=== PATIENT | male | born 1960 | race African-American/Black ===

== ENCOUNTER 2024-12-09 10:57 | Outpatient (CLI) | payer OTHER, SELFPAY ==
--- OUTSIDE RECORDS SUMMARY | 2024-12-09 12:35 | XMS_ITS | Clinical Summary ---
Author Organization [facility] Address [address] [place] [address] Care Team Providers Care Brush Maker Machine Name Role Phone Shyam Castro MD Primary Care Provider [phone] Allergies No known active allergies Medications albuterol HFA (PROVENTIL HFA,VENTOLIN HFA,PROAIR HFA) 90 mcg/actuation inhaler INHALE 4 PUFFS EVERY 4 HOURS BY INHALATION ROUTE FOR 90 DAYS. 2 Active Symbicort 160-4.5 mcg/actuation inhaler INHALE 2 PUFFS TWICE A DAY BY INHALATION ROUTE FOR 90 DAYS. 2 Active HYDROcodone-acetam inophen (NORCO) 7.5-325 mg per tablet TAKE 1 TABLET BY MOUTH THREE TIMES A DAY FOR 7 DAYS 2 Active Viagra 100 mg tablet TAKE 1 TABLET BY MOUTH 30-60 MINUTES PRIOR TO SEXUAL ACTIVITY. DO NOT TAKE MORE THAN 1 TABLET IN ANY 24-HOUR PERIOD. 2 Active rivaroxaban (XARELTO) 20 mg tablet Take 1 tablet (20 mg total) by mouth daily 90 tablet 2 Active benzonatate (TESSALON) 200 mg capsule Take 200 mg by mouth 3 (three) times a day 2 Active loratadine (CLARITIN) 10 mg tablet Take 10 mg by mouth daily 2 Active Tiadylt ER 240 mg 24 hr capsule Take by mouth daily 2 Active ramipriL (ALTACE) 1.25 mg capsuleIndications :Essential hypertension,Nonis chemic cardiomyopathy (HCC) Take 1 capsule (1.25 mg total) by mouth daily 30 capsule 11 3 Active metoprolol tartrate (LOPRESSOR) 25 mg immediate release tablet TAKE 1 TABLET BY MOUTH TWICE A DAY 180 tablet 3 3 Active Xarelto 20 mg tablet TAKE 1 TABLET BY MOUTH EVERY DAY 90 tablet 1 3 Active Active Problems Problem Noted Date Diagnosed Date Atrial fibrillation 02/09/2022 Overview (02/09/2022): Added automatically from request for surgery [id number] Bradycardia 02/09/2022 Overview (02/09/2022): Added automatically from request for surgery [id number] Chest pain 02/09/2022 Overview (02/09/2022): Added automatically from request for surgery [id number] Paroxysmal atrial fibrillation 02/09/2022 Overview (02/09/2022): Added automatically from request for surgery [id number] Cardiovascular stress test abnormal 02/09/2022 Overview (02/09/2022): Added automatically from request for surgery [id number] Peripheral vascular disease 02/09/2022 Overview (02/09/2022): Added automatically from request for surgery [id number] Essential hypertension 02/09/2022 Overview (02/09/2022): Added automatically from request for surgery [id number] Dyspnea on exertion 02/09/2022 Overview (02/09/2022): Added automatically from request for surgery [id number] Palpitations 02/09/2022 Overview (02/09/2022): Added automatically from request for surgery [id number] Surgical History Surgery Date Site/Laterality Comments NO PAST SURGERIES Medical History Medical History Date Comments Gout Shortness of breath Family History Medical History Relation Name Comments Arthritis Father Arthritis Mother Diabetes Mother Heart disease Mother Relation Name Status Comments Father Mother Social History Tobacco Use Types Packs/Day Years Used Date Smoking Tobacco: Every Day Cigarettes 0.5 20 Smokeless Tobacco: Never Tobacco Cessation:Ready to Q uit: Not Asked; Counseling Given: Not Answered Alcohol Use Standard Drinks/Week Comments Yes 0 (1 standard drink = 0.6 oz pur e alcohol) social Personal Safety Answer Date Recorded Getting School Help Needed Not on file 09/20 Sex and Gender Information Value Date Recorded Sex Assigned at Not on file Legal Sex Male 8:40 PM OFFICE MOVER Gender Identity Not on file Sexual Orientation Not on file Obstetrics History Last Filed Vital Signs Vital Sign Reading Time Taken Comments Blood Pressure 140/86 09/17/2022 11:29 AM OFFICE MOVER Pulse 66 09/17/2022 11:29 AM OFFICE MOVER Temperature 36.4 C (97.5 F) 02/08/2022 11:00 AM CDT Respiratory Rate 16 02/12/2022 2:35 PM CDT Oxygen Saturation 99% 09/17/2022 11:29 AM OFFICE MOVER Inhaled Oxygen Concentration - - Weight 98.9 kg (218 lb) 09/17/2022 11:29 AM OFFICE MOVER Height 180.3 cm (5' 11 ) 02/08/2022 11:00 AM CDT Body Mass Index 30.4 02/08/2022 11:00 AM CDT Plan of Treatment Health Maintenance Due Date Last Done Comments Colon Cancer Screening-Colonoscopy 1960 Depression Screening 1960 Hepatitis C Screening 1960 Prostate Cancer Screening-PSA 1960 DTaP/Tdap/Td Vaccine (1 - Tdap) 1971 Hepatitis B Screening 1978 Regular Well Visit/Exam 18-64 1978 Pneumococcal vaccine <65 (1 of 2 - PCV) 1979 Zoster Vaccine (1 of 2) 2010 Covid-19 Vaccine ( - season) 05/10/202410/2020, 02/09/2021 Influenza Vaccine (Season Ended) 2025 Insurance [facility] ACCESS CHOICE Member Subscriber Plan / Payer (Ef fective 2017-Present) Name:Alonso Chris Relation to Subscriber:Self Name:Alonso Chris Payer ID:[id number] (NAIC) Type:[facility] Address: [address] [place] [id number] Care Teams Brush Maker Machine Relationship Specialty Start Date End Date Shyam Castro MD [address] [place] [id number] PCP - General Family Medicine 11/15/21
--- OUTSIDE RECORDS SUMMARY | 2024-12-09 12:35 | XMS_ITS | Clinical Summary ---
Author Organization [facility] Address [address] [place] [address] Care Team Providers Care Branch Billing Payroll Clerk Name Role Phone Shyam Castro Primary Care Provider [phone] Source Comments [facility],non-owned Affiliates and Associated Physician Practices is amultiple site organization consisting of ambulatory clinics and hospital sitesin [place], [place], [place] and [place]. This disclosure is being madepursuant to the Care Everywhere program and may not contain all information available regarding this patient. Last updated 18.[facility] Allergies No known active allergies Medications * Be aware that medications may not be up to date on this document. Alwaysverify current medications with the patient. Medication Sig Dispensed Refills Start Date End Date Status ramipril (Altace) 1.25 MG capsule Take 1 (one) capsule by mouth once daily 30 capsule 11 09/17/2022 Active Tiadylt ER 240 MG capsule Take 1 (one) capsule by mouth once daily 07/17/2023 Active aspirin (Aspirin) 81 MG chew tablet Take 1 (one) tablet by mouth once daily Active folic acid (Folvite) 1 MG tabletIndications:Par oxysmal atrial fibrillation (HCC),Valvular heart disease,Dyslipidemia, Essential hypertension,PAF (paroxysmal atrial fibrillation) (HCC),Alcoholic myopathy Take 1 (one) tablet by mouth once daily 90 tablet 4 08/20/2023 Active Thiamine HCl 250 MGIndications:Paroxys mal atrial fibrillation (HCC),Valvular heart disease,Dyslipidemia, Essential hypertension,PAF (paroxysmal atrial fibrillation) (HCC),Alcoholic myopathy Take 2 (two) tablets by mouth once daily 90 tablet 1 08/20/2023 Active Xarelto 20 MG tablet TAKE 1 TABLET BY MOUTH EVERY DAY 90 tablet 1 05/13/2024 Active metoprolol tartrate IR (Lopressor) 25 MG tablet Take 1 (one) tablet by mouth 2 times daily Please contact office at [phone] to schedule appt 60 tablet 11 09/24/2024 Active Active Problems Problem Noted Date Diagnosed Date PAF (paroxysmal atrial fibrillation) 09/24/2024 Assessment & Plan (09/24/2024 10:07 AM SALON MANAGER): Atrial fibrillation is permanent. Continue rate control and Xarelto. Essential hypertension 09/24/2024 Assessment & Plan (09/24/2024 10:07 AM SALON MANAGER): Controlled with current medications. No changes recommended. Neoplasm of uncertain behavior of skin 9 Encounters Date Type Department Care Team Description 09/24/2024 9:15 AM SALON MANAGER Office Visit [facility] [address] [place] [address] Skip Ponce MD PAF (paroxysmal atrial fibrillation) (Primary Dx); Essential hypertension 09/24/2024 Travel from Last 3 Months Social History Tobacco Use Types Packs/Day Years Used Date Smoking Tobacco: Every Day Cigarettes Smokeless Tobacco: Never Tobacco Cessation:Ready to Q uit: Not Asked; Counseling Given: Not Answered Alcohol Use Standard Drinks/Week Comments Not Currently 0 (1 standard drink = 0.6 oz pur e alcohol) PHQ-2 Answer Date Recorded Patient Health Questionnaire-2 Score 0 08/20/2023 Sex and Gender Information Value Date Recorded Sex Assigned at Not on file Gender Identity Not on file Sexual Orientation Not on file Last Filed Vital Signs Vital Sign Reading Time Taken Comments Blood Pressure 130/64 09/24/2024 9:32 AM SALON MANAGER Pulse 88 09/24/2024 9:32 AM SALON MANAGER Temperature - - Respiratory Rate 12 08/20/2023 9:45 AM SALON MANAGER Oxygen Saturation 99% 09/24/2024 9:32 AM SALON MANAGER Inhaled Oxygen Concentration - - Weight 91.1 kg (200 lb 12.8 oz) 09/24/2024 9:32 AM SALON MANAGER Height 182.9 cm (6') 09/24/2024 9:32 AM SALON MANAGER Body Mass Index 27.23 09/24/2024 9:32 AM SALON MANAGER Plan of Treatment Upcoming Encounters Date Type Department Care Team (Late st Contact Info) Description 09/22/2025 9:30 AM SALON MANAGER Office Visit [facility] [address] [place] [address] Skip Ponce MD [address] [place] [phone] Health Maintenance Due Date Last Done Comments COLOGUARD (AGES 45-75) - COL ON CA SCREENING 1960 COLON MONITORING 1960 COLONOSCOPY - COLON CA SCREENING 1960 CT COLONOGRAPHY - COLON CA SCREENING 1960 Colorectal Cancer Screening 1960 FIT - COLON CA SCREENING 1960 FLEX SIG - COLON CA SCREENING 1960 LIPID TESTING 1960 HIV SCREENING 1975 HEPATITIS C SCREENING 07/30/1978 DTAP/TDAP/TD VACCINES (1 - Tdap) 1979 PNEUMOCOCCAL VACCINE 50+ (1 of 2 - PCV) 1979 PNEUMOCOCCAL VACCINE (1 of 2 - PCV) 1979 ZOSTER VACCINE (1 of 2) 2010 COVID-19 VACCINE ( - 2023-2 5 season) 2024 INFLUENZA VACCINE (#1) 2024 DEPRESSION SCREENING 09/09/2024 08/20/2023 SCREENING FOR DIABETES 09/24/2024 Respiratory Syncytial Virus (RSV) Vaccine Pt: or over 60 yrs (1 - 1-dose 75+ series) 2035 HEPATITIS B VACCINE Aged Out No longe r eligible based on patient's age to complete this topic HIB VACCINE Aged Out No longer eligi ble based on patient's age to complete this topic HPV VACCINE Aged Out No longer eligi ble based on patient's age to complete this topic MENINGOCOCCAL (Group B) VACC INE SHARED DECISION-MAKING Aged Out No longer eligibl e based on patient's age to complete this topic MENINGOCOCCAL GROUPS A/C/Y/W VACCINE Aged Out No longer eligible b ased on patient's age to complete this topic Procedures Procedure Name Priority Date/Time Associated Diagnosis Comments EKG 12-LEAD Routine 09/24/2024 9:32 AM SALON MANAGER PAF (paroxysmal atrial fibrillation) from Last 3 Months Results * EKG 12-LEAD (09/24/2024 9:32 AM SALON MANAGER) Ventricular Rate 68 BPM [facility] MUSE QRS Duration ms 102 ms [facility] MUSE Q-T Interval ms 380 ms [facility] GR[facility] MUSE QTC Calculation (Bezet) 404 ms [facility] GR[facility] MUSE Calculated R [place] 43 degrees [facility] MUSE Calculated T [place] 65 degrees [facility] MUSE Interpretation EKG Atrial fibrillation Septal infarct (cited on or before 20-AUG-2023) Abnormal ECG When compared with ECG of 20-AUG-2023 09:53, No significant change was found Confirmed by SKIP PONCE MD ([id number]) on 09/25/2024 9:13:23 AM [facility] MUSE 09/24/2024 9:32 AM SALON MANAGER 09/25/2024 9:13 AM SALON MANAGER Skip Ponce MD ECG ORDERABLES [facility] MUSE from Last 3 Months Care Teams Branch Billing Payroll Clerk Relationship Specialty Start Date End Date Shyam Castro [address] [place] [phone] PCP - General 06/09/19
--- OUTSIDE RECORDS SUMMARY | 2024-12-09 12:35 | XMS_ITS | Referral Summary ---
Author Organization [facility] Address [address] [place] [address] Care Team Providers Care Shingler Name Role Phone Shyam Castro MD Primary Care Provider [phone] Allergies No known active allergies Medications albuterol [...] (02/09/2022): Added automatically from request for surgery [id number] Bradycardia 02/09/2022 Overview (02/09/2022): Added automatically from request for surgery [id number] Chest pain 02/09/2022 Overview (02/09/2022): Added automatically from request for surgery [id number] Paroxysmal atrial fibrillation 02/09/2022 Overview (02/09/2022): Added automatically from request for surgery [id number] Cardiovascular stress test abnormal 02/09/2022 Overview (02/09/2022): Added automatically from request for surgery [id number] Peripheral vascular disease 02/09/2022 Overview (02/09/2022): Added automatically from request for surgery [id number] Essential hypertension 02/09/2022 Overview (02/09/2022): Added automatically from request for surgery [id number] Dyspnea on exertion 02/09/2022 Overview (02/09/2022): Added automatically from request for surgery [id number] Palpitations 02/09/2022 Overview (02/09/2022): Added automatically from request for surgery [id number] Social History Tobacco Use Types Packs/Day Years [...] on file Legal Sex Male 8:40 PM CATASTROPHE CLAIMS SUPERVISOR Gender Identity Not on file Sexual Orientation Not on file Last Filed Vital Signs Vital Sign Reading Time Taken Comments Blood Pressure 140/86 09/17/2022 11:29 AM CATASTROPHE CLAIMS SUPERVISOR Pulse 66 09/17/2022 11:29 AM CATASTROPHE CLAIMS SUPERVISOR Temperature 36.4 C (97.5 F) 02/08/2022 11:00 AM CDT Respiratory Rate 16 02/12/2022 2:35 PM CDT Oxygen Saturation 99% 09/17/2022 11:29 AM CATASTROPHE CLAIMS SUPERVISOR Inhaled Oxygen Concentration - - Weight 98.9 kg (218 lb) 09/17/2022 11:29 AM CATASTROPHE CLAIMS SUPERVISOR Height 180.3 cm (5' 11 ) 02/08/2022 11:00 AM CDT Body Mass Index 30.4 02/08/2022 11:00 AM CDT Plan of Treatment Not on file Insurance [facility] ACCESS CHOICE Care Teams Shingler Relationship Specialty Start Date End Date Shyam Castro MD [address] [place] [id number] PCP - General Family Medicine 11/15/21
--- OUTSIDE RECORDS SUMMARY | 2024-12-09 12:36 | XMS_ITS | Data Portability ---
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 Plan of Treatment Reminders Order Date Submit Date Provider Last Modified By Organization Details Last Modified Time Details Appointments ANY 15 2024 09:15A Susu Castro MD Not available Not available Not available Lab None recorded. Referral audiologi st referral 2024 025 [facility] (Audiology), [address] [place] [address], [phone], 11/23/2024 11:40:31 Procedures None recorded. Surgeries None recorded. Imaging XR, knee, 3 view 2024 025 [facility] ([facility]), [address] [place], [address], 11/25/2024 09:17:10 Medication Orders trazodone 50 mg tablet 2024 025 [facility] [id number], [address], 11/23/2024 11:12:30 hydrocodo ne 5 mg-acetam inophen 325 mg tablet 2024 025 [facility] [id number], [address], 11/23/2024 11:14:32 meloxicam 15 mg tablet 2024 025 ARETHA CARROLL [address] In [facility], [address] [facility], [place], [address], 11/23/2024 11:14:19 baclofen 10 mg tablet 2024 025 [id number] In [facility], [address] [facility], [place], [address], 11/23/2024 11:14:20 allopurin ol 300 mg tablet 2023 024 ARETHA CARROLL Recinos33 In [facility], [address] [facility], [place], [address], 08/25/2024 11:21:14 diclofena c sodium 75 mg tablet,de layed release 2023 024 [facility] [id number] In [facility], [address] [facility], [place], [address], 08/25/2024 11:21:11 trazodone 50 mg tablet 2023 024 ARETHA CARROLL [id number] In [facility], [address] [facility], [place], [address], 08/25/2024 11:21:12 sildenafi l 100 mg tablet 2023 024 [facility], [facility], [address] [place] [address], [id number], 08/25/2024 11:50:49 allopurin ol 300 mg tablet 2023 024 [facility] [id number] In [facility], [address] [facility], [place], [address], 06/03/2024 11:10:22 diclofena c sodium 75 mg tablet,de layed release 2023 024 [facility] [address] In [facility], [address] [place] [address], [id number], 06/03/2024 11:10:21 hydrocodo ne 7.5 mg-acetam inophen 325 mg tablet 2023 024 [facility]TH[facility] [place] In [facility], [address] [place] [address], [id number], 06/03/2024 11:10:28 sildenafi l 100 mg tablet 2023 [facility], [facility], [address] [place] [address], [id number], 06/03/2024 13:20:51 hydrocodo ne 7.5 mg-acetam inophen 325 mg tablet 2023 ARETHA CARROLL [place] In [facility], [address] [place] [address], [id number], 03/03/2024 11:10:36 sildenafi l 100 mg tablet 2023 024 [facility], [address] [place] [address], [id number], 03/03/2024 11:25:30 capsaicin 0.1 % topical cream 2023 ARETHA CARORLL [place] In [facility], [address] [place] [address], [id number], 01/08/2024 17:58:44 triamcino lone acetonide 0.1 % topical ointment 2023 024 ARETHA CARROLL [place] In [facility], [address] [place] [address], [id number], 01/08/2024 17:58:44 Patient TargetsNo targets recorded. Patient Instructions Encounter Date Encounter Id Patient Instructions Last Modified By Organization Details Last Modified Time 03/03/2024 [id number] gout: care instructions Not available 03/03/2024 11:10:33 knee arthritis: care instructions Not available 03/03/2024 11:10:33 A healthy lifestyle: care instructions Not available 03/03/2024 11:10:33 chronic obstructive pulmonary disease (COPD): care instructions Not available 03/03/2024 11:10:33 learning about copd and how to prevent lung infections Not available 03/03/2024 11:10:33 tooth and gum pain: care instructions Not available 03/03/2024 11:10:33 atrial fibrillation: care instructions Not available 03/03/2024 11:10:33 06/03/2024 [id number] gout: care instructions Not available 06/03/2024 11:10:00 knee arthritis: care instructions Not available 06/03/2024 11:10:00 A healthy lifestyle: care instructions Not available 06/03/2024 11:10:00 chronic obstructive pulmonary disease (COPD): care instructions Not available 06/03/2024 11:10:00 learning about copd and how to prevent lung infections Not available 06/03/2024 11:10:00 tooth and gum pain: care instructions Not available 06/03/2024 11:10:00 atrial fibrillation: care instructions Not available 06/03/2024 11:10:00 08/25/2024 [id number] gout: care instructions Not available 08/25/2024 11:21:09 knee arthritis: care instructions Not available 08/25/2024 11:21:09 A healthy lifestyle: care instructions Not available 08/25/2024 11:21:08 insomnia: care instructions Not available 08/25/2024 11:21:08 Quitting Tobacco : Care Instructions Not available 08/25/2024 11:21:08 chronic obstructive pulmonary disease (COPD): care instructions Not available 08/25/2024 11:21:09 learning about copd and how to prevent lung infections Not available 08/25/2024 11:21:08 atrial fibrillation: care instructions Not available 08/25/2024 11:21:09 11/23/2024 [id number] gout: care instructions Not available 11/23/2024 11:14:16 A healthy lifestyle: care instructions Not available 11/23/2024 11:12:30 insomnia: care instructions Not available 11/23/2024 11:12:30 advance care planning: care instructions Not available 11/23/2024 11:12:30 preventing falls : care instructions Not available 11/23/2024 11:12:30 Quitting Tobacco : Care Instructions Not available 11/23/2024 11:12:30 Medicare Well[facility] Preventive Checklist Not available 11/23/2024 11:12:30 eating healthy foods: care instructions Not available 11/23/2024 11:12:30 AD8 Dementia Screening Interview Not available 11/23/2024 11:12:30 chronic obstructive pulmonary disease (COPD): care instructions Not available 11/23/2024 11:12:30 learning about copd and how to prevent lung infections Not available 11/23/2024 11:12:30 hearing loss: care instructions Not available 11/23/2024 11:12:31 atrial fibrillation: care instructions Not available 11/23/2024 11:12:30 heart failure: care instructions Not available 11/23/2024 11:12:30 learning about heart failure Not available 11/23/2024 11:12:30 Reason for Referral [place] Referral for Hea ring loss Referring Physician: Shyam Castro, Family Medicine, Encounter Date: 11/23/2024 Results Created Date Observation Date Name Description Value Unit Range Abnormal Flag Note LastModifiedBy Organization Detail LastModifiedTime 11/26/1911/25/2024 XR, knee, 3 view No observ ation record ed. [facility] [address] [facility], [place], [address], 11/25/2024 09:17:41 Result Notes None recorded. Problems Name Problem SNOMED Code Status Onset Date Resolution Date Notes Provider Name and Address Organization Details Recorded Time Gout 18663157 Active 2017 Melvin Miguel PA-C Attn: Accounting, [address] [place], [address], [facility] 8 18:32:44 Numbness 95871114 Active 2017 Artyesy De La Rosa null, [place] - [facility] 8 10:52:29 Osteoarthr itis of knee 629213488 Active 2018 Artyesy De La Rosa [place] null, [place] [facility] 9 11:08:54 Chronic obstructiv e pulmonary disease 43246642 Active 2018 DANGELO Roth, [place] - [facility] 9 11:09:22 Congestive heart failure 73600698 Active 2021 Macey De La Rosa MA null, [place] - [facility] 2 14:23:33 Chondromal acia of right patella 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 Procedures Surgical History Date Name Laterality Status Provider Name and Address Organization Details Recorded Time 4 Routine Foot Care completed LEX ALVAREZ DPM [address], [place], [address], [facility] 01/08/2024 17:57:59 3 Routine Foot Care completed LEX ALVAREZ DPM [address], [place], [address], [place] [facility] 07/10/2023 12:01:51 3 Routine Foot Care completed KHUSBU ARAYA, DPM [address], [place], [address], [place] [facility] 04/02/2023 14:44:54 3 Routine Foot Care completed KHUSBU ARAYA, DPM [address], [place], [address], [place] [facility] 03/05/2023 10:02:59 3 Nail Debridement completed KHUSBU ARAYA, DPM [address], [place], [address], [place] [facility] 03/05/2023 10:53:14 3 Routine Foot Care completed KHUSBU ARAYA, DPM [address], [place], [address], [place] [facility] 01/22/2023 13:53:34 3 Routine Foot Care completed KHUSBU ARAYA, DPM [address], [place], [address], [place] [facility] 12/25/2022 14:10:34 1 aaa-Dr. Hernandez - Inject right knee completed Mir Hernandez MD [address], [place], [address], [place] [facility] 03/21/2021 09:41:03 Imaging Results Imaging Date Name Status LastModified by Organiz ation Details LastModified Time 11/25/2024 XR, knee, 3 view completed [facility] [address], [place], [address], 11/25/2024 09:17:41 Procedure Notes None recorded. Medical Equipment None Reported. Allergies Allergen ID Allergen Name Allergen Category Reaction Reaction Severity Criticality Documentation Date Start Date Code Code System Note Provider Name and Address Organization Details Recorded Time 705174 ibuprofen medicatio n Not available Not available Not available 04/01/20182023 5640 RxNorm Not Available Not Available Not Available Medications Name Sig Start Date Stop Date Status Note LastModified by Organization Details LastModified Time amoxicillin 500 mg capsule Take 1 capsule 3 times a day by oral route. 04/17 completed Not Available Not Available Not Available doxycycline hyclate 100 mg capsule TAKE 1 CAPSULE BY MOUTH TWICE A DAY active Not Available Not Available No t Available nicotine 14 mg/24 hr daily transdermal patch Apply 1 patch every day by transderm al route for 30 days. 2021 active Not Available Not Available Not Avai lable trazodone 50 mg tablet TAKE 1 TABLET BY MOUTH EVERY night prn 2024 active Not Available Not Available Not Avai lable cetirizine 10 mg tablet TAKE 1 TABLET BY MOUTH EVERY DAY active Not Available Not Available No t Available azithromyci n 250 mg tablet TAKE 2 TABLETS BY MOUTH TODAY, THEN TAKE 1 TABLET DAILY FOR 4 DAYS active Not Available Not Available No t Available ibuprofen 800 mg tablet Take 1 tablet 3 times a day by oral route with meals for 30 days. 2022 active Not Available Not Available Not Avai lable benzonatate 200 mg capsule TAKE 1 CAPSULE BY MOUTH THREE TIMES A DAY active Not Available Not Available No t Available hydrocodone 5 mg-acetamin ophen 325 mg tablet TAKE 1 TABLET BY MOUTH THREE TIMES A DAY FOR 7 DAYS active Not Available Not Available No t Available promethazin e 6.25 mg/5 mL oral syrup Take 10 mL( 2 teaspoonf ul) by mouth every 6 hours as needed 03/21 completed Not Available Not Available Not Available meloxicam 15 mg tablet TAKE 1 TABLET BY MOUTH EVERY DAY DIRECTED active Not Available Not Available No t Available prednisone 20 mg tablet TAKE 1 TABLET BY MOUTH TWICE DAILY active Not Available Not Available No t Available prednisone 5 mg tablet PLEASE SEE ATTACHED FOR DETAILED DIRECTION S active Not Available Not Available No t Available allopurinol 100 mg tablet Take 1 tablet every day by oral route at bedtime for 30 days. 04/17 completed Not Available Not Available Not Available sildenafil 100 mg tablet -TAKE 1 TABLET BY MOUTH 30-60 MINUTES PRIOR TO SEXUAL ACTIVITY. DO NOT TAKE MORE THAN 1 TABLET IN ANY 24-HOUR PERIOD- active Not Available Not Available No t Available amoxicillin 500 mg tablet TAKE ONE EVERY EIGHT HOURS active Not Available Not Available No t Available Depo-Medrol 80 mg/mL suspension for injection Take 1 mL by injection route for 1 day. 04/17 completed Not Available Not Available Not Available meloxicam 7.5 mg tablet TAKE 1 TABLET BY MOUTH EVERY DAY WITH MEALS FOR 10 DAYS active Not Available Not Available No t Available Tessalon Perles 100 mg capsule Take 1 capsule 3 times a day by oral route for 10 days. 03/21 completed Not Available Not Available Not Available amoxicillin 875 mg tablet TAKE 1 TABLET BY MOUTH EVERY 12 HOURS FOR 10 DAYS active Not Available Not Available No t Available famotidine 20 mg tablet TAKE 1 TABLET TWICE A DAY BY ORAL ROUTE FOR 90 DAYS. active Not Available Not Available No t Available gentamicin 0.3 % eye drops INSTILL 1 DROP INTO AFFECTED EYE(S) BY OPHTHALMI C ROUTE EVERY 4 HOURS 03/21 completed Not Available Not Available Not Available aspirin 325 mg tablet,nicole yed release TAKE 1 TABLET BY MOUTH EVERY DAY active Not Available Not Available No t Available baclofen 10 mg tablet TAKE 1 TABLET BY MOUTH TWICE A DAY active Not Available Not Available No t Available hydrocodone 7.5 mg-acetamin ophen 325 mg tablet TAKE 1 TABLET BY MOUTH THREE TIMES A DAY FOR 7 DAYS active Not Available Not Available No t Available triamcinolo ne acetonide 0.1 % topical ointment APPLY THIN COAT TO AFFECTED AREA TWICE A DAY active Not Available Not Available No t Available indomethaci n 50 mg capsule Take 1 capsule 3 times a day by oral route for 14 days. 03/21 completed Not Available Not Available Not Available diclofenac sodium 75 mg tablet,nicole yed release Take 1 tablet twice a day by oral route. 2023 active Not Available Not Available Not Avai lable folic acid 1 mg tablet TAKE 1 TABLET BY MOUTH EVERY DAY active Not Available Not Available No t Available montelukast 10 mg tablet Take 1 tablet every day by oral route as directed for 90 days. 2021 active Not Available Not Available Not Avai lable ammonium lactate 12 % topical cream APPLY TOPICALLY EVERY DAY DIRECTED active Not Available Not Available No t Available allopurinol 300 mg tablet Take 1 tablet every day by oral route for 90 days. 2023 active Not Available Not Available Not Avai lable Proventil HFA 90 mcg/actuati on aerosol inhaler Inhale 4 puffs every 4 hours by inhalatio n route for 90 days. 2021 active Not Available Not Available Not Avai lable mupirocin 2 % topical ointment APPLY A SMALL AMOUNT TO THE AFFECTED AREA BY TOPICAL ROUTE 3 TIMES PER DAY 03/21 completed Not Available Not Available Not Available gabapentin 100 mg capsule Take 1 capsule twice a day by oral route for 30 days. 03/21 completed Not Available Not Available Not Available dexamethaso ne sodium phosphate 4 mg/mL injection solution Inject 1 mL by intramusc ular route. 11/21 completed Not Available Not Available Not Available fluticasone propionate 50 mcg/actuati on nasal spray,suspe nsion SPRAY 1 SPRAY EVERY DAY BY INTRANASA L ROUTE DIRECTED FOR 90 DAYS. active Not Available Not Available No t Available ramipril 1.25 mg capsule TAKE 1 CAPSULE BY MOUTH EVERY DAY active Not Available Not Available No t Available loratadine 10 mg tablet TAKE 1 TABLET BY MOUTH EVERY DAY active Not Available Not Available No t Available naproxen 500 mg tablet TAKE 1 TABLET BY MOUTH TWICE A DAY 2022 active Not Available Not Available Not Avai lable amoxicillin 875 mg-potassiu m clavulanate 125 mg tablet TAKE 1 TABLET BY MOUTH TWICE A DAY 03/05 completed Not Available Not Available Not Available azithromyci n 500 mg tablet TAKE 1 TABLET BY MOUTH EVERY DAY FOR 3 DAYS active Not Available Not Available No t Available Tylenol 8 Hour 650 mg tablet,exte nded release Take 1 tablet every 8 hours by oral route for 30 days. 03/21 completed Not Available Not Available Not Available metoprolol tartrate 25 mg tablet TAKE 1 (ONE) TABLET BY MOUTH 2 TIMES DAILY PLEASE CONTACT OFFICE AT [phone] TO SCHEDULE APPT active Not Available Not Available No t Available capsaicin 0.1 % topical cream APPLY 1 APPLICATI ON TOPICALLY 3 TIMES A DAY active Not Available Not Available No t Available Symbicort 160 mcg-4.5 mcg/actuati on HFA aerosol inhaler Inhale 2 puffs twice a day by inhalatio n route for 90 days. 2021 active Not Available Not Available Not Avai lable Xarelto 20 mg tablet TAKE 1 TABLET BY MOUTH EVERY DAY active Not Available Not Available No t Available Incruse Ellipta 62.5 mcg/actuati on powder for inhalation Inhale 1 puff every day by inhalatio n route for 90 days. 03/21 completed Not Available Not Available Not Available Tiadylt ER 240 mg capsule,ext ended release TAKE 1 CAPSULE BY MOUTH EVERY DAY active Not Available Not Available No t Available Vitals Date Recorded Body height Body mass index (BMI) Body weight Heart rate Body temperature Systolic blood pressure Diastolic blood pressure Provider Name and Address Organization Details Last Updated DateTime 4 180.34 cm 28.1 kg/m2 24046.7 8 g 77 /min 98 [degF] 126 mm[Hg] 76 mm[Hg] Saima Hercules MA [facility] 4 16:19:49 Date Recorded Body height Body mass index (BMI) Body weight Oxygen saturation Oxygen saturation in Arterial blood by Pulse oximetry Heart rate Respiratory rate Body temperature Systolic blood pressure Diastolic blood pressure Provider Name and Address Organization Details Last Updated DateTime 4 180.34 cm 28.5 kg/m2 20458.8 4 g 97 % 97 % 76 /min 18 /min 98 [degF] 119 mm[Hg] 65 mm[Hg] Silver De La Rosa MA [facility] 4 10:33:24 Date Recorded Body height Body mass index (BMI) Body weight Oxygen saturation Oxygen saturation in Arterial blood by Pulse oximetry Pain severity - 0-10 verbal numeric rating [Score] - Reported Heart rate Respiratory rate Body temperature Systolic blood pressure Diastolic blood pressure Provider Name and Address Organization Details Last Updated DateTime 4 180.34 cm 28 kg/m2 60582.2 7 g 95 % 95 % 0 81 /min 18 /min 98 [degF] 124 mm[Hg] 80 mm[Hg] Sahil Mcneal MA [facility] 4 10:47:18 Date Recorded Body height Body mass index (BMI) Body weight Oxygen saturation Oxygen saturation in Arterial blood by Pulse oximetry Pain severity - 0-10 verbal numeric rating [Score] - Reported Heart rate Respiratory rate Body temperature Systolic blood pressure Diastolic blood pressure Provider Name and Address Organization Details Last Updated DateTime 4 180.34 cm 27.1 kg/m2 06188.0 2 g 95 % 95 % 0 116 /min 18 /min 98.1 [degF] 150 mm[Hg] 103 mm[Hg] Sahil Mcneal MA [facility] 4 10:44:48 Date Recorded Body height Body mass index (BMI) Body weight Oxygen saturation Oxygen saturation in Arterial blood by Pulse oximetry Heart rate Respiratory rate Body temperature Systolic blood pressure Diastolic blood pressure Provider Name and Address Organization Details Last Updated DateTime 5 180.34 cm 28.3 kg/m2 27013.6 5 g 100 % 100 % 64 /min 18 /min 97.3 [degF] 130 mm[Hg] 76 mm[Hg] Silver De La Rosa MA [facility] 5 10:36:35 Social History Question Answer Notes LastModified by Organizat ion Details LastModified Time Tobacco Smoking Status Current Every Day [facility] 19:31:25 Do You Have An Advance Directive? No Information not available 12/25/2022 What Is Your Level Of Alcohol Consumption? Occasional Information not available 02/12/2022 Are You Blind Or Do You Have Difficulty Seeing? No Information not available 02/12/2022 What Is Your Level Of Caffeine Consumption? Occasional Information not available 02/12/2022 In The 14 Days Before Symptom Onset, Have You Had Close Contact With A Laboratory-confir med COVID-19 While That Case Was Ill? No Information not available 07/01/2023 In The 14 Days Before Symptom Onset, Have You Had Close Contact With A Person Who Is Under Investigation For COVID-19 While That Person Was Ill? No Information not available 07/01/2023 Have You Been To An Area Known To Be High Risk For COVID-19? No Information not available 07/01/2023 Are You Deaf Or Do You Have Serious Difficulty Hearing? Yes Information not available 02/12/2022 What Type Of Diet Are You Following? REGULAR Information not available 02/12/2022 Are There Any Guns Present In Your Home? No Information not available 11/21/2021 Do You Have A Medical Power Of Energy Advisor? No Information not available 12/25/2022 What Was The Date Of Your Most Recent Tobacco Screening? 11/23/2024 Information not available 11/23/2024 Do You Use Your Seat Belt Or Car Seat Routinely? Yes Information not available 02/12/2022 Do You Have Smoke And Carbon Monoxide Detectors In Your Home? Yes Information not available 11/21/2021 Are You Passively Exposed To Smoke? Yes Information no t available 11/21/2021 How Much Tobacco Do You Smoke? 1 PPW [email or web address] Information not available 11/08/2015 Do You Feel Stressed (tense, Restless, Nervous, Or Anxious, Or Unable To Sleep At Night)? [id number] Information not available 02/12/2022 Do You Use Any Illicit Or Recreational Drugs? No Information not available 02/12/2022 Do You Use Sunscreen Routinely? No Information not available 11/21/2021 Has Tobacco Cessation Counseling Been Provided? Yes Information not available 02/12/2022 On What Date Was Tobacco Cessation Counseling Provided? 11/23/2024 Information not available 11/23/2024 Do You Or Have You Ever Used Any Other Forms Of Tobacco Or Nicotine? No Information not available 11/21/2021 Sex: Male Functional Status Question Answer Note LastModified by Organization D etails LastModified Time Are you able to care for yourself? Yes Information n ot available 02/12/2022 What is your exercise level? None Information not available 02/12/2022 Mental Status None recorded. Family History Nothing Reported. Medical History Condition Response Coronary Artery Disease N Other N Atrial Fibrillation N High Blood Pressure N Thyroid Problems N Kidney or Bladder Problems N GI Problems N Depression N COPD Y Blood Clots N Skin Problems N Eating Disorder N Anemia N Heart Attack (VT) N Anxiety Disorder N Diabetes N Muscle, Joint, or Bone Problems Y Seizures/Epilepsy N Acid Reflux (GERD) N Cancer N Stroke N Asthma N Allergies N ADHD N Substance Abuse N High Cholesterol N Hepatitis N Liver Disease N Schizophrenia N Headaches N Heart Failure N Osteoporosis N Immunizations Vaccine Type Date Status Note Provider Nam e and Address Organization Details Recorded Time COVID-19, mRNA, LNP-S, PF, 30 mcg/0.3 mL dose, anahi-sucrose 11/22/2021 completed Bryan bailey, [place] - [facility] 11/22/2021 15:14:46 Past Encounters Encounter ID Performer Location Encounter Start Date Encounter Closed Date Diagnosis/Indication Diagnosis SNOMED-CT Code Diagnosis ICD10 Code Diagnosis Note [id number] Alessandro Stallings MD [address] [address] 06/24/2015 18:29:32 06/30/2015 17:04:38 Conjunctivitis 7307726 H10.9 Upper resp iratory infection 54994127 J06.9 [id number] Shyam Castro MD [address] [address] 11/08/2015 18:23:08 11/21/2015 17:15:34 Upper respiratory infection 64023672 J06.9 meds and follow up... [id number] Shyam Castro MD [address] [address] 06/13/2017 16:42:10 06/28/2017 08:40:24 Adult health examination 910295452 Z00.00 labs and follow up... Upper resp iratory infection 66584870 J06.9 meds and follow up.. Chronic ob structive pulmonary disease 99500292 J44.9 meds Swelling o f wrist joint 115722280 M25.439 meds and follow up... [id number] Shyam Castro MD [address] [address] 08/12/2017 09:52:59 08/12/2017 17:36:58 Chronic obstructive pulmonary disease 85568528 J44.9 meds Adult heal th examination 659345870 Z00.00 labs and follow up... elevated LFTs... r./o hep C, but has h/o daily alcohol... record BP for 2 month follow up... [id number] Melvin Miguel PA-C [place] [id number] 09/12/2017 17:22:30 09/13/2017 08:32:55 Gout 62240571 M10.9 right hand Swelling o f wrist joint 447052628 M25.048 [id number] Shyam Castro MD [place] [address] 09/17/2017 17:04:56 09/20/2017 12:45:10 Gout 68951255 M10.9 meds and return to work next saturday... stop indocin Upper resp iratory infection 94723371 J06.9 meds and follow up..stop tobacco Adult heal th examination [id number] Z00.00 labs and follow up... elevated LFTs... r./o hep C, but has h/o daily alcohol... record BP for 2 month follow up... HAS stopped drinking in 2018!!! labs when healthy [id number] Shyam Castro MD [place] [address] 3 10/14/2017 09:23:24 10/17/2017 08:44:08 Gout 54403493 M10.9 meds and return to work next saturday... stop indocin Numbness 32837151 R20.0 hand numbness Chronic ob structive pulmonary disease 94936424 J44.9 meds Impotence 411965293 N52. 9 [id number] Shyam Castro MD [place] [address] 3 01/13/2018 10:15:05 01/14/2018 15:43:14 Gout 76121044 M10.9 meds and return to work next saturday... stop indocin Chronic ob structive pulmonary disease 63812177 J44.9 meds Numbness of hand 9844797 04 R20.0 refer Impotence 778966999 N52. 9 meds and follow up... [id number] Shyam Castro MD [place] [address] 3 04/01/2018 18:07:56 04/03/2018 09:47:15 Low back pain 165940897 M54.5 shorty term with acute injury Abrasion 568426654 S20.9 1XA meds and follow up [id number] Shyam Castro MD [address] [address] 12/02/2018 18:08:13 12/03/2018 08:22:18 Gout 78764541 M10.9 meds and return to work next saturday... stop indocin [id number] Shyam Castro MD [address] [address] 12/30/2018 18:09:40 12/31/2018 10:29:46 Gout 78953753 M10.9 meds and return to work next saturday... stop indocin [id number] Shyam Castro MD [address] [address] 01/29/2019 09:45:31 01/29/2019 14:48:58 Gout 84890254 M10.9 meds and return to work statement Adult heal th examination 375793744 Z00.00 labs and follow up... elevated LFTs... r./o hep C, daily alcohol... record BP for 2 month follow up.. Impotence 458836385 N52. 9 meds and follow up... Lipoma of back 747921887 D17.1 may be hematoma with h/o fall... [id number] Shyam Castro MD [address] [address] 04/06/2019 09:51:45 04/07/2019 11:04:29 Lipoma 00660839 D17.9 refer... Dermatofibroma 479111542 D23.9 refer... Impotence 883682954 N52. 9 meds and follow up... Gout 99703697 M10.9 meds and return to work statement Chronic ob structive pulmonary disease 61350401 J44.9 meds..... [id number] MABLE WILLAMS MD [facility] [address] [place] [address] 04/17/2019 13:48:41 04/30/2019 11:50:30 Lipoma of lower back 118557859 D17.1 58M with right flank lipoma, ~5cm in size. DIscussion had of risks and benefits of excision, including bleeding, infection, damage to near structures . Patient has agreed to proceed. [id number] MABLE WILLAMS MD [facility] [address] [place] [address] 05/12/2019 09:51:28 05/21/2019 10:01:08 [id number] Shyam Castro MD [address] [address] 07/08/2019 10:23:17 07/09/2019 10:21:15 Lipoma 77488784 D17.9 referred and lesion removed from right flank.. Dermatofibroma 885868998 D23.9 refered and will have right cheek lesion removed .. Impotence 427519378 N52. 9 meds and follow up... Gout 87133442 M10.9 meds and return to work statement Chronic ob structive pulmonary disease 93146908 J44.9 meds..... Musculoskeletal pain 279 122977 M79.10 x-ray and follow up... [id number] Shyam Castro MD [address] [address] 07/14/2019 17:57:49 07/15/2019 10:42:40 Osteoarthritis of knee 714775053 M17.9 meds and refer.. [id number] Shyam Castro MD [address] [address] 08/31/2019 09:53:47 09/03/2019 14:53:25 Chronic obstructive pulmonary disease 93154396 J44.9 meds..... Lipoma 74706952 D17.9 referred and lesion removed from right flank.. Dermatofibroma 190788118 D23.9 refered and will have right cheek lesion removed .. Impotence 705687551 N52. 9 meds and follow up... Gout 91815334 M10.9 meds and return to work statement Musculoskeletal pain 279 098854 M79.10 x-ray and follow up... saw Dr. Vale and received injection [id number] Shyam Castro MD [address] [place] [address] 11/30/2019 10:50:08 12/01/2019 08:29:16 Chronic obstructive pulmonary disease 99160992 J44.9 meds..... Allergic rhinitis 636712 04 J30.9 advised smoking cessation. .. Pain of right wrist 3169 445795 86489 M25.531 refill for 1 week Musculoskeletal pain 279 527082 M79.10 x-ray and follow up... saw Dr. Vale and received injection Impotence 250222773 N52. 9 meds and follow up... [id number] Shyam Castro MD [address] [address] 03/08/2020 12:42:25 03/09/2020 07:18:07 Chronic obstructive pulmonary disease 05700127 J44.9 meds..... Allergic rhinitis 936695 04 J30.9 advised smoking cessation. .. Pain of right wrist 3169 396740 44130 M25.531 refill for 1 week Musculoskeletal pain 279 152332 M79.10 x-ray and follow up... saw Dr. Vale and received injection Impotence 103367409 N52. 9 meds and follow up... [id number] Shyam Castro MD [address] [address] 04/19/2020 13:38:33 04/20/2020 07:52:47 Gout 22055327 M10.9 meds and return to work statement [id number] Shyam Castro MD [address] [address] 05/31/2020 11:30:54 06/01/2020 07:31:48 Gout 44832911 M10.9 meds and return to work statement Chronic ob structive pulmonary disease 30004244 J44.9 meds..... Allergic rhinitis 112904 04 J30.9 advised smoking cessation. .. Musculoskeletal pain 279 928162 M79.10 x-ray and follow up... saw Dr. Vale and received injection Impotence 040960770 N52. 9 meds and follow up... [id number] Shyam Castro MD [address] [address] 08/22/2020 12:01:43 08/23/2020 06:48:40 Gout 78177939 M10.9 meds and return to work statement Chronic ob structive pulmonary disease 45790284 J44.9 meds..... Allergic rhinitis 586293 J30.9 advised smoking cessation. .. Impotence 643793895 N52. 9 meds and follow up... Osteoarthr itis of knee 484983024 M17.9 x-ray and follow up... refer [id number] Shyam Castro MD [address] [address] 11/21/2020 10:28:21 11/22/2020 06:35:29 Gout 08181575 M10.9 meds and return to work statement Chronic ob structive pulmonary disease 25624053 J44.9 meds..... Allergic rhinitis 357996 J30.9 advised smoking cessation. .. Impotence 902698289 N52. 9 meds and follow up... Osteoarthr itis of knee 980567570 M17.9 x-ray and follow up... refer for right knee.. Neuropathy 037547739 G62 .9 refer and brace... [id number] Shyam Castro MD [address] [address] 03/09/2021 13:16:49 03/10/2021 20:13:28 Osteoarthritis of knee 365657876 M17.9 x-ray and follow up... refer for right knee.. Gout 57923346 M10.9 meds and return to work statement Chronic ob structive pulmonary disease 41317058 J44.9 meds..... Allergic rhinitis 605717 J30.9 advised smoking cessation. .. Impotence 271868356 N52. 9 meds and follow up... Neuropathy 664765540 G62 .9 refer and brace... [id number] Mir Hernandez MD [facility] [address] [place] [address] 03/21/2021 09:21:47 03/22/2021 12:33:29 Pain in right knee 8044028050 59957 M25.561 NO INDICATION FOR HYDROCODON E OR OTHER CONTROLLED Rx FROM [facility] BUT OF COURSE PRIMARY PROVIDER IS FREE TO PRESCRIBE THIS DESIRED [id number] Shyam Castro MD [place] [address] 04/19/2021 10:45:03 04/20/2021 07:31:06 Osteoarthritis of knee 318001480 M17.9 x-ray and follow up... refer for right knee.. Gout 54186168 M10.9 meds and return to work statement Chronic ob structive pulmonary disease 57326988 J44.9 meds..... Allergic rhinitis 198807 04 J30.9 advised smoking cessation. .. Impotence 953747143 N52. 9 meds and follow up... Neuropathy 932260560 G62 .9 refer and brace... [id number] Shyam Castro MD [address] [address] 11/10/2021 11:07:59 11/13/2021 13:07:47 Chronic obstructive pulmonary disease 94386767 J44.9 meds..... Osteoarthr itis of knee 205731094 M17.9 x-ray and follow up... refer for right knee.. Sleep apnea 93423312 G47 .30 meds Gout 36780531 M10.9 meds and return to work statement Allergic rhinitis 956097 04 J30.9 advised smoking cessation. .. Impotence 568927375 N52. 9 meds and follow up... Neuropathy 585663425 G62 .9 refer and brace... Adult heal th examination 039639638 Z00.00 labs and follow up... elevated LFTs... r./o hep C, daily alcohol... record BP for 2 month follow up.. Gastroesop hageal reflux disease 108494231 K21.9 refill meds Smoker 11535961 F17.291 [id number] Shyam Castro MD [address] [address] 11/21/2021 17:26:12 11/23/2021 09:37:12 Abdominal pain 63254845 R10.9 order and follow up... Sleep apnea 36739174 G47 .30 snores at night... pending appt... [id number] [facility] [address] [place] [address] 11/22/2021 11:40:14 12/12/2021 20:00:19 Administration of SARS-CoV-2 mRNA vaccine 4251591616 Z23 [id number] Shyam Castro MD [address] [address] 01/09/2022 16:35:24 01/10/2022 11:46:19 Chronic obstructive pulmonary disease 48486905 J44.9 meds..... Osteoarthr itis of knee 055400007 M17.9 x-ray and follow up... refer for right knee.. Gout 81022818 M10.9 meds and return to work statement Allergic rhinitis 532870 04 J30.9 advised smoking cessation. .. Impotence 589283740 N52. 9 meds and follow up... Neuropathy 286906629 G62 .9 refer and brace... [id number] Shyam Castro MD [address] [address] 01/16/2022 17:23:51 01/17/2022 11:58:29 Gout 66542226 M10.9 meds and return to work statement Osteoarthr itis of knee 309637919 M17.9 x-ray and follow up... refer for right knee.. [id number] Shyam Castro MD [address] [address] 02/12/2022 10:51:26 02/13/2022 08:56:40 Chronic obstructive pulmonary disease 66680602 J44.9 meds..... Osteoarthr itis of knee 955041799 M17.9 x-ray and follow up... refer for right knee.. Gout 44711890 M10.9 meds and return to work statement History of cardiac catheterization 1532178398 9100 Z98.890 will have procedure today... follow up with phone call tomorrow.. . return to work in 3 days... [id number] Shyam Castro MD [address] [address] 04/16/2022 10:09:26 04/18/2022 11:54:24 Chronic obstructive pulmonary disease 75843188 J44.9 meds..... Osteoarthr itis of knee 160738223 M17.9 x-ray and follow up... Gout 64237163 M10.9 meds Smoker 41512518 F17.200 1/2 ppd... [id number] Shyam Castro MD [address] [address] 09/18/2022 10:45:06 09/19/2022 09:12:26 Chronic obstructive pulmonary disease 02904804 J44.9 meds..... Osteoarthr itis of knee 522921491 M17.9 right mod medial knee OA... Gout 65371715 M10.9 meds Smoker 70830511 F17.200 1/2 ppd... Atrial fibrillation 4943 6004 I48.91 seeing cardiology ... [id number] Shyam Castro MD [address] [address] 12/17/2022 10:42:14 12/18/2022 18:06:43 Gout 31230693 M10.9 meds Smoker 40337052 F17.200 1/2 ppd... Obesity 274731663 E66.9 212....... BMI=31.4 Bilateral hearing loss 85971551 H91.93 refer Chronic ob structive pulmonary disease 95257826 J44.9 meds..... Atrial fibrillation 4943 6004 I48.91 seeing cardiology ... Osteoarthr itis of right knee joint 7963873981 41220 M17.11 meds as needed..rg ht moderate medial knee OA Foot callus 338643138 L8 4 refer... [id number] LEON ARAYA DPM [facility] [address] [place] [address] 12/25/2022 10:50:09 02/22/2023 15:00:44 Pain in right foot 9926102335 10027 M79.671 Pain in left foot 465506 4182 66819 M79.672 Severe dry skin 47246665 2 L85.3 The patient was educated regarding proper hydration of their feet/ankle s and the patient was given several recommenda tions for proper creams to protect/hy drate and keep the area healthy. Rx ammonium lactate lotion to be applied to feet daily. [place] - lesion 940275238 L84 Hyperkerat otic lesions x 5 debrided sharply down using a #15 blade to b/l feet. Silver nitrate applied to lesion sites after debridemen t. After removal of overlying extensive hyperkerat osis, healthy tissue was noted and care was taken to assure that no underminin g or probing was present. It should be noted that no infection or drainage was appreciate d at this time. No open lesions noted at this time. Offloading pads fabricated and applied to callus lesion sites on the plantar aspect of feet, recommende d patient wear offloading pads in shoegear. Recommend patient use ammonium lacate cream to apply to callus lesion sites to soften skin. Acquired h ammer toe of right foot 8156533911 786029 M20.41 The patient was educated regarding how to mechanical ly stabilize their deformity. The patient was given education about shoe recommenda tions specific for the condition. The patient was educated about custom orthotics and how appropriat e shoes and orthotics can prevent further worsening of the deformity. The patient was educated about how bad shoe habits can worsen the condition. NSAIDS, P.T., injections and other conservati ve treatments were discussed. Both surgical and non surgical treatments were discussed, but conservati ve options were emphasized . Discussed wearing shoes with an in-depth toe box. Acquired h ammer toe of left foot 8854399846 117610 M20.42 The patient was educated regarding how to mechanical ly stabilize their deformity. The patient was given education about shoe recommenda tions specific for the condition. The patient was educated about custom orthotics and how appropriat e shoes and orthotics can prevent further worsening of the deformity. The patient was educated about how bad shoe habits can worsen the condition. NSAIDS, P.T., injections and other conservati ve treatments were discussed. Both surgical and non surgical treatments were discussed, but conservati ve options were emphasized . Discussed wearing shoes with an in-depth toe box. [id number] LEON ARAYA DPM [facility] [address] [place] [address] 01/22/2023 10:17:35 02/26/2023 10:44:30 Pain in right foot 0991568340 11590 M79.671 Pain in left foot 284366 1000 33177 M79.672 Severe dry skin 57738846 2 L85.3 The patient was educated regarding proper hydration of their feet/ankle s and the patient was given several recommenda tions for proper creams to protect/hy drate and keep the area healthy. Continue ammonium lactate lotion to be applied to feet daily. [place] - lesion 682716113 L84 Hyperkerat otic lesions x 5 debrided sharply down using a #15 blade to b/l feet. Silver nitrate applied to lesion sites after debridemen t. After removal of overlying extensive hyperkerat osis, healthy tissue was noted and care was taken to assure that no underminin g or probing was present. It should be noted that no infection or drainage was appreciate d at this time. No open lesions noted at this time. Recommend patient continue use ammonium lacate cream to apply to callus lesion sites to soften skin. Custom Foot orthotics with submetatat arsal 1 and 5 cutouts prescribed . Acquired h ammer toe of right foot 0636277836 572266 M20.41 The patient was educated regarding how to mechanical ly stabilize their deformity. The patient was given education about shoe recommenda tions specific for the condition. The patient was educated about custom orthotics and how appropriat e shoes and orthotics can prevent further worsening of the deformity. The patient was educated about how bad shoe habits can worsen the condition. NSAIDS, P.T., injections and other conservati ve treatments were discussed. Both surgical and non surgical treatments were discussed, but conservati ve options were emphasized . Discussed wearing shoes with an in-depth toe box. Acquired h ammer toe of left foot 9779155570 281664 M20.42 The patient was educated regarding how to mechanical ly stabilize their deformity. The patient was given education about shoe recommenda tions specific for the condition. The patient was educated about custom orthotics and how appropriat e shoes and orthotics can prevent further worsening of the deformity. The patient was educated about how bad shoe habits can worsen the condition. NSAIDS, P.T., injections and other conservati ve treatments were discussed. Both surgical and non surgical treatments were discussed, but conservati ve options were emphasized . Discussed wearing shoes with an in-depth toe box. [id number] Shyam Castro MD [address] [address] 03/01/2023 11:38:20 03/05/2023 15:48:31 Gout 50450948 M10.9 meds Osteoarthr itis of knee 860144662 M17.9 right mod medial knee OA... Congestive heart failure 94738547 I50.9 Chronic ob structive pulmonary disease 72274579 J44.9 meds..... Smoker 99100663 F17.200 1/2 ppd... Obesity 512649621 E66.9 bmi=30.9 Sensorineu ral hearing loss 08924446 H90.5 [id number] LEON ARAYA DPM [facility] [address] [place] [address] 03/05/2023 09:35:20 03/07/2023 15:17:15 Pain in right foot 7235177404 48790 M79.671 Pain in left foot 428748 4679 23429 M79.672 Severe dry skin 35268867 2 L85.3 The patient was educated regarding proper hydration of their feet/ankle s and the patient was given several recommenda tions for proper creams to protect/hy drate and keep the area healthy. Continue ammonium lactate lotion to be applied to feet daily. [place] - lesion 254533518 L84 Hyperkerat otic lesions x 5 debrided sharply down using a #15 blade to b/l feet. Silver nitrate applied to lesion sites after debridemen t. After removal of overlying extensive hyperkerat osis, healthy tissue was noted and care was taken to assure that no underminin g or probing was present. It should be noted that no infection or drainage was appreciate d at this time. No open lesions noted at this time. Recommend patient continue use ammonium lacate cream to apply to callus lesion sites to soften skin. Custom Foot orthotics with submetatat arsal 1 and 5 cutouts prescribed - patient states he was molded for the custom foot orthotics. Renewed Meloxicam 7.5 mg daily for additional 10 days. Acquired h ammer toe of right foot 7708943095 978610 M20.41 The patient was educated regarding how to mechanical ly stabilize their deformity. The patient was given education about shoe recommenda tions specific for the condition. The patient was educated about custom orthotics and how appropriat e shoes and orthotics can prevent further worsening of the deformity. The patient was educated about how bad shoe habits can worsen the condition. NSAIDS, P.T., injections and other conservati ve treatments were discussed. Both surgical and non surgical treatments were discussed, but conservati ve options were emphasized . Discussed wearing shoes with an in-depth toe box. Acquired h ammer toe of left foot 5900912376 481056 M20.42 The patient was educated regarding how to mechanical ly stabilize their deformity. The patient was given education about shoe recommenda tions specific for the condition. The patient was educated about custom orthotics and how appropriat e shoes and orthotics can prevent further worsening of the deformity. The patient was educated about how bad shoe habits can worsen the condition. NSAIDS, P.T., injections and other conservati ve treatments were discussed. Both surgical and non surgical treatments were discussed, but conservati ve options were emphasized . Discussed wearing shoes with an in-depth toe box. Onychomycosis 256120002 B35.1 Aseptic debridemen t of elongated thickened nails x 10 using sterile nippers, nails were debrided in length and thickness by 30% utilizing a nail nipper without incident. The patient was educated regarding all treatment options that include topical and oral antifungal treatments . I discussed the options of taking a sample of the nail to confirm diagnosis. Nail clippings were not sent for pathology analysis. The patient was educated why and how the fungal infection evolved in their feet and the patient was given informatio n regarding how to prevent further infection. The patient was told to keep feet dry and change socks. The patient was told to be careful with old shoes and excessive sweating. The patient was educated regarding both OTC and prescripti on treatments . Pain of to e of right foot 2429123795 29423 M79.674 Pain of to e of left foot 7507759812 03858 M79.692 [id number] LEON ARAYA DPM [facility] [address] [place] [address] 04/02/2023 10:06:58 04/04/2023 14:38:42 Pain in right foot 6094157297 39664 M79.671 Pain in left foot 980408 1827 44067 M79.672 Severe dry skin 11678159 2 L85.3 The patient was educated regarding proper hydration of their feet/ankle s and the patient was given several recommenda tions for proper creams to protect/hy drate and keep the area healthy. Continue ammonium lactate lotion to be applied to feet daily. [place] - lesion 589809790 L84 Hyperkerat otic lesions x 4 debrided sharply down using a #15 blade to b/l feet. Silver nitrate applied to lesion sites after debridemen t. After removal of overlying extensive hyperkerat osis, healthy tissue was noted and care was taken to assure that no underminin g or probing was present. It should be noted that no infection or drainage was appreciate d at this time. No open lesions noted at this time. Recommend patient continue use ammonium lacate cream to apply to callus lesion sites to soften skin. Custom Foot orthotics with submetatat arsal 1 and 5 cutouts prescribed - patient states he received the custom foot orthotics however no cutouts were noted. Resubmitte d to [facility] for modificati ons. Instructed patient to call [facility] also. Acquired h ammer toe of right foot 0606383381 364357 M20.41 The patient was educated regarding how to mechanical ly stabilize their deformity. The patient was given education about shoe recommenda tions specific for the condition. The patient was educated about custom orthotics and how appropriat e shoes and orthotics can prevent further worsening of the deformity. The patient was educated about how bad shoe habits can worsen the condition. NSAIDS, P.T., injections and other conservati ve treatments were discussed. Both surgical and non surgical treatments were discussed, but conservati ve options were emphasized . Discussed wearing shoes with an in-depth toe box. Acquired h ammer toe of left foot 2850410818 747790 M20.42 The patient was educated regarding how to mechanical ly stabilize their deformity. The patient was given education about shoe recommenda tions specific for the condition. The patient was educated about custom orthotics and how appropriat e shoes and orthotics can prevent further worsening of the deformity. The patient was educated about how bad shoe habits can worsen the condition. NSAIDS, P.T., injections and other conservati ve treatments were discussed. Both surgical and non surgical treatments were discussed, but conservati ve options were emphasized . Discussed wearing shoes with an in-depth toe box. Onychomycosis 161855100 B35.1 The patient was educated regarding all treatment options that include topical and oral antifungal treatments . I discussed the options of taking a sample of the nail to confirm diagnosis. Nail clippings were not sent for pathology analysis. The patient was educated why and how the fungal infection evolved in their feet and the patient was given informatio n regarding how to prevent further infection. The patient was told to keep feet dry and change socks. The patient was told to be careful with old shoes and excessive sweating. The patient was educated regarding both OTC and prescripti on treatments . [id number] Shyam Castro MD [address] [address] 05/02/2023 09:57:44 05/03/2023 16:23:01 Overweight 146547819 E66.3 bmi=29.9 Gout 31857975 M10.9 meds Smoker 03712383 F17.200 1/2 ppd... Obesity 682079336 E66.9 212....... BMI=31.4 Bilateral hearing loss 21354496 H91.93 refer Chronic ob structive pulmonary disease 45035687 J44.9 meds..... Atrial fibrillation 4943 6004 I48.91 seeing cardiology ... Osteoarthr itis of right knee joint 9536739920 86005 M17.11 meds as needed..ri ght moderate medial knee OA Foot callus 173235078 L8 4 refer... [id number] LEX ALVAREZ DPM [facility] [address] [place] [address] 05/10/2023 15:23:26 05/13/2023 12:02:33 Pain in right foot 0549890854 66051 M79.671 Pain in left foot 227694 1350 00895 M79.672 Severe dry skin 43079404 2 L85.3 The patient was educated regarding proper hydration of their feet/ankle s and the patient was given several recommenda tions for proper creams to protect/hy drate and keep the area healthy. Continue ammonium lactate lotion to be applied to feet daily. [place] - lesion 965025936 L84 Hyperkerat otic lesions x 4 debrided sharply down using a #15 blade to b/l feet. Silver nitrate applied to lesion sites after debridemen t. After removal of overlying extensive hyperkerat osis, healthy tissue was noted and care was taken to assure that no underminin g or probing was present. It should be noted that no infection or drainage was appreciate d at this time. No open lesions noted at this time. Recommend patient continue use ammonium lacate cream to apply to callus lesion sites to soften skin. Custom Foot orthotics with submetatat arsal 1 and 5 cutouts prescribed - patient states he received the custom foot orthotics however no cutouts were noted. Resubmitte d to [facility] for modificati ons. Instructed patient to call [facility] also. Acquired h ammer toe of right foot [id number] 830414 M20.41 The patient was educated regarding how to mechanical ly stabilize their deformity. The patient was given education about shoe recommenda tions specific for the condition. The patient was educated about custom orthotics and how appropriat e shoes and orthotics can prevent further worsening of the deformity. The patient was educated about how bad shoe habits can worsen the condition. NSAIDS, P.T., injections and other conservati ve treatments were discussed. Both surgical and non surgical treatments were discussed, but conservati ve options were emphasized . Discussed wearing shoes with an in-depth toe box. Acquired h ammer toe of left foot [id number] 408073 M20.42 The patient was educated regarding how to mechanical ly stabilize their deformity. The patient was given education about shoe recommenda tions specific for the condition. The patient was educated about custom orthotics and how appropriat e shoes and orthotics can prevent further worsening of the deformity. The patient was educated about how bad shoe habits can worsen the condition. NSAIDS, P.T., injections and other conservati ve treatments were discussed. Both surgical and non surgical treatments were discussed, but conservati ve options were emphasized . Discussed wearing shoes with an in-depth toe box. Onychomycosis 469913797 B35.1 The patient was educated regarding all treatment options that include topical and oral antifungal treatments . I discussed the options of taking a sample of the nail to confirm diagnosis. Nail clippings were not sent for pathology analysis. The patient was educated why and how the fungal infection evolved in their feet and the patient was given informatio n regarding how to prevent further infection. The patient was told to keep feet dry and change socks. The patient was told to be careful with old shoes and excessive sweating. The patient was educated regarding both OTC and prescripti on treatments . Metatarsal mac of right foot 1600507232 09393 M77.41 [id number] Saleem Lockett MD [facility] [address] [address] 07/01/2023 14:50:31 07/02/2023 15:08:20 Pain in right knee 7181723845 99839 M25.561 NO INDICATION FOR HYDROCODON E OR OTHER CONTROLLED Rx FROM [facility] BUT OF COURSE PRIMARY PROVIDER IS FREE TO PRESCRIBE THIS DESIRED Gout 67743826 M10.9 Chondromal acia of right patella 1498378049 3017239 M22.41 Osteoarthr itis of right knee joint 4643196593 64004 M17.11 [id number] Shyam Castro MD [address] [address] 07/01/2023 10:27:44 07/02/2023 13:01:34 Overweight 954225354 E66.3 bmi=29.8 Gout 76014516 M10.9 meds Smoker 84475408 F17.200 1/2 ppd... Obesity 633847536 E66.9 212....... BMI=31.4 Bilateral hearing loss 07414064 H91.93 refer Chronic ob structive pulmonary disease 31611530 J44.9 meds..... Atrial fibrillation 4943 6004 I48.91 seeing cardiology ... Osteoarthr itis of right knee joint 1377696622 42063 M17.11 meds as needed..ri ght moderate medial knee OA... seeing ortho... Foot callus 295883330 L8 4 refer... [id number] LEX ALVAERZ DPM [facility] [address] [place] [address] 07/10/2023 09:21:42 07/12/2023 13:24:01 Pain in right foot 6549230682 74123 M79.671 Pain in left foot 669287 5369 80571 M79.672 Severe dry skin 74435043 2 L85.3 The patient was educated regarding proper hydration of their feet/ankle s and the patient was given several recommenda tions for proper creams to protect/hy drate and keep the area healthy. Continue ammonium lactate lotion to be applied to feet daily. [place] - lesion 558433222 L84 Hyperkerat otic lesions x 4 debrided sharply down using a #15 blade to b/l feet. Silver nitrate applied to lesion sites after debridemen t. After removal of overlying extensive hyperkerat osis, healthy tissue was noted and care was taken to assure that no underminin g or probing was present. It should be noted that no infection or drainage was appreciate d at this time. No open lesions noted at this time. Recommend patient continue use ammonium lacate cream to apply to callus lesion sites to soften skin. Custom Foot orthotics with submetatat arsal 1 and 5 cutouts prescribed - patient states he received the custom foot orthotics however no cutouts were noted. Resubmitte d to [facility] for modificati ons. Instructed patient to call [facility] also. Acquired h ammer toe of right foot [id number] 417218 M20.41 The patient was educated regarding how to mechanical ly stabilize their deformity. The patient was given education about shoe recommenda tions specific for the condition. The patient was educated about custom orthotics and how appropriat e shoes and orthotics can prevent further worsening of the deformity. The patient was educated about how bad shoe habits can worsen the condition. NSAIDS, P.T., injections and other conservati ve treatments were discussed. Both surgical and non surgical treatments were discussed, but conservati ve options were emphasized . Discussed wearing shoes with an in-depth toe box. Acquired h ammer toe of left foot [id number] 922573 M20.42 The patient was educated regarding how to mechanical ly stabilize their deformity. The patient was given education about shoe recommenda tions specific for the condition. The patient was educated about custom orthotics and how appropriat e shoes and orthotics can prevent further worsening of the deformity. The patient was educated about how bad shoe habits can worsen the condition. NSAIDS, P.T., injections and other conservati ve treatments were discussed. Both surgical and non surgical treatments were discussed, but conservati ve options were emphasized . Discussed wearing shoes with an in-depth toe box. Onychomycosis 810657618 B35.1 The patient was educated regarding all treatment options that include topical and oral antifungal treatments . I discussed the options of taking a sample of the nail to confirm diagnosis. Nail clippings were not sent for pathology analysis. The patient was educated why and how the fungal infection evolved in their feet and the patient was given informatio n regarding how to prevent further infection. The patient was told to keep feet dry and change socks. The patient was told to be careful with old shoes and excessive sweating. The patient was educated regarding both OTC and prescripti on treatments . Metatarsal mac of right foot 2382796993 40467 M77.41 Bilateral atherosclerosis of arteries of lower limbs 6264856596 8228842 I70.203 The patient was educated about the importance of exercise, diet and the need to protect their feet in order to prevent injury or ulceration . [id number] Shyam Castro MD [address] [address] 10/02/2023 11:23:21 10/03/2023 12:11:51 Chronic obstructive pulmonary disease 98415499 J44.9 meds..... Osteoarthr itis of knee 986857325 M17.9 right mod medial knee OA... Gout 87059598 M10.9 meds Overweight 791522966 E66 .3 bmi=29.2 Toothache 77359973 K08.8 9 meds and follow up... Atrial fibrillation 4943 6004 I48.91 seeing cardiology ...follow up BP... [id number] LEX ALVAREZ DPM [facility] [address] [place] [address] 01/08/2024 16:06:52 01/09/2024 08:29:38 Pain in right foot 7858250997 83911 M79.671 Pain in left foot 466856 1676 36929 M79.672 Severe dry skin 16483495 2 L85.3 The patient was educated regarding proper hydration of their feet/ankle s and the patient was given several recommenda tions for proper creams to protect/hy drate and keep the area healthy. Continue ammonium lactate lotion to be applied to feet daily. [place] - lesion 127731939 L84 Hyperkerat otic lesions x 4 debrided sharply down using a #15 blade to b/l feet. Silver nitrate applied to lesion sites after debridemen t. After removal of overlying extensive hyperkerat osis, healthy tissue was noted and care was taken to assure that no underminin g or probing was present. It should be noted that no infection or drainage was appreciate d at this time. No open lesions noted at this time. Recommend patient continue use ammonium lacate cream to apply to callus lesion sites to soften skin. Custom Foot orthotics with submetatat arsal 1 and 5 cutouts prescribed - patient states he received the custom foot orthotics however no cutouts were noted. Resubmitte d to [facility] for modificati ons. Instructed patient to call [facility] also. Acquired h ammer toe of right foot [id number] 852403 M20.41 The patient was educated regarding how to mechanical ly stabilize their deformity. The patient was given education about shoe recommenda tions specific for the condition. The patient was educated about custom orthotics and how appropriat e shoes and orthotics can prevent further worsening of the deformity. The patient was educated about how bad shoe habits can worsen the condition. NSAIDS, P.T., injections and other conservati ve treatments were discussed. Both surgical and non surgical treatments were discussed, but conservati ve options were emphasized . Discussed wearing shoes with an in-depth toe box. Acquired h ammer toe of left foot 4764628132 180715 M20.42 The patient was educated regarding how to mechanical ly stabilize their deformity. The patient was given education about shoe recommenda tions specific for the condition. The patient was educated about custom orthotics and how appropriat e shoes and orthotics can prevent further worsening of the deformity. The patient was educated about how bad shoe habits can worsen the condition. NSAIDS, P.T., injections and other conservati ve treatments were discussed. Both surgical and non surgical treatments were discussed, but conservati ve options were emphasized . Discussed wearing shoes with an in-depth toe box. Onychomycosis 177951391 B35.1 The patient was educated regarding all treatment options that include topical and oral antifungal treatments . I discussed the options of taking a sample of the nail to confirm diagnosis. Nail clippings were not sent for pathology analysis. The patient was educated why and how the fungal infection evolved in their feet and the patient was given informatio n regarding how to prevent further infection. The patient was told to keep feet dry and change socks. The patient was told to be careful with old shoes and excessive sweating. The patient was educated regarding both OTC and prescripti on treatments . Metatarsal mac of right foot 9508747153 73084 M77.41 Bilateral atherosclerosis of arteries of lower limbs 7959538885 0213309 I70.203 The patient was educated about the importance of exercise, diet and the need to protect their feet in order to prevent injury or ulceration . Idiopathic peripheral neuropathy 79451907 G60.9 [id number] Shyam Castro MD [address] [address] 03/03/2024 09:55:59 03/04/2024 12:06:23 Overweight 438760211 E66.3 bmi=28.5 Chronic ob structive pulmonary disease 66754286 J44.9 meds..... Osteoarthr itis of knee 859119979 M17.9 right mod medial knee OA... Gout 96747843 M10.9 meds Toothache 92316518 K08.8 9 meds and follow up... Atrial fibrillation 4943 6004 I48.91 seeing cardiology ...follow up BP... Pain of le ft elbow joint 9389110469 4415038 M25.522 Primary er ectile dysfunction 257771691 N52.9 [id number] Shyam Castro MD [address] [address] 06/03/2024 09:47:57 06/04/2024 09:25:49 Overweight 690880778 E66.3 bmi=28 Chronic ob structive pulmonary disease 28294870 J44.9 meds..... Osteoarthr itis of knee 548199877 M17.9 right mod medial knee OA... Gout 54418111 M10.9 meds Toothache 49234856 K08.8 9 meds and follow up... Atrial fibrillation 4943 6004 I48.91 seeing cardiology ...follow up BP... Pain of le ft elbow joint 5555144728 9422328 M25.522 Primary er ectile dysfunction 914797517 N52.9 [id number] Shyam Castro MD [address] [address] 08/25/2024 09:57:10 08/27/2024 08:09:16 Osteoarthritis of knee 251047315 M17.9 right mod medial knee OA... Overweight 244630505 E66 .3 bmi=27.1 Congestive heart failure 52319616 I50.9 Chronic ob structive pulmonary disease 88184076 J44.9 meds..... Gout 43871729 M10.9 stable Atrial fibrillation 4943 6004 I48.91 seeing cardiology ...follow up BP with out-pt reading... Pain of le ft elbow joint 8360750504 1422396 M25.522 no sx Primary er ectile dysfunction 648849126 N52.9 Smoker 08524179 F17.200 1/2 ppd... advised to top smoking... Insomnia 762876697 G47.0 0 attempt med... Alcohol in take above recommended sensible limits 439065445 F10.10 daily beers... advised reduction. .. [id number] Shyam Castro MD [address] [address] 11/23/2024 09:59:19 11/24/2024 11:12:03 Adult health examination 927881440 Z00.00 Health Risk Assessment collected and reviewed Overweight 930771346 E66 .3 bmi=28.3 Congestive heart failure 57705486 I50.9 stable Chronic ob structive pulmonary disease 57952379 J44.9 meds..... Atrial fibrillation 4943 6004 I48.91 seeing cardiology ...follow up BP with out-pt reading... Insomnia 015191208 G47.0 0 meds helped... Hearing loss 69509220 H9 1.93 Gout 50590382 M10.9 stable Pain of ri ght knee joint 0047794585 58268 M25.561 Health Concerns Section Related Observation LastModified by Organization Detai ls LastModified Time None Recorded Concern Status LastModified by Organization Details LastModified Time None Recorded Advance Directives Directive N: Payers Encounter Date Sequence Insurance Name Policy Number Policy Petty Covered Member ID Petty Member ID Guarantor Name 01/08/2024 1 [employer] [id number] Chris Gupta [id number] Chris Gupta 01/08/2024 2 [place] [id number] Chris Gupta [id number] Chris Gupta 03/03/2024 1 [facility] [id number] Chris Gupta [id number] Chris Gupta 06/03/2024 1 [facility] [id number] Chris Gupta [id number] Chris Gupta 08/25/2024 1 [place] Chris Gupta [id number] Chris Gupta 08/25/2024 2 [place] WHEN MED[place]ARE OR MEDICARE REPLACEMENT PRIMARY) Chris Gupta [id number] Chris Gupta 11/23/2024 2 [place] Chris Gupta [id number] Chris Gupta 11/23/2024 1 [employer] [place] - [place] ON OR AFTER 2020 (MEDICAID REPLACEMENT - HMO) Chris Gupta [id number] Chris Gupta Notes Date Note Type Note Provider Name and Address Organization Details Recorded Time 01/08/2024 text/html Patient returns to clinic for painful calluses to both feet. Patient states he has been using the cream for his feet and has noticed that the calluses are improved. He states he received the custom foot orthotics but they hurt. He states that he stopped scraping his feet on hard concrete. Patient denies any constitutional symptoms at this time. Denies any recent trauma to the foot or ankle. Patient states he smokes 6-8 cigarettes daily. Admits to thickened toenails, callus sites, dry skin, and deformities on feet bilaterally. LEX ALVAREZ DPM [address] [place], [address], [facility] 01/08/2024 17:59:56 03/03/2024 text/html knees wrist pain off/on... has retired recently.. getting injections in knees... right writ pain still evident... also left elbow pain after injury... he retired from work las week, but not before banging his elbow... still good ROM, but pain... ibuprofen has helped swelling and tenderness, but general bruise area is sore... Shyam Castro MD Attn: Accounting, [address] [place], [address], [facility] 03/03/2024 11:13:13 06/03/2024 text/html regular beer jimena barron awoke with left anle swelling on day without injury... has had gout in the past... Shyam Castro MD Attn: Accounting, [address] [place], [address], [facility] 06/03/2024 11:17:11 08/25/2024 text/html 1/2 ppd... no fevers/chills/SOB.. no S/H ideations... Shyam Castro MD Attn: Accounting, [address] [place], [address], [facility] 08/25/2024 11:22:04 11/23/2024 text/html here for follow up has hearing issues... elbow is better... general body aches... not as active... no fevers/chils/SOB... stiffness... Shyam Castro MD Attn: Accounting, [address] [place], [address], [facility] 11/23/2024 11:14:34
== END 2024-12-09 10:58 | disposition home or self-care (01) ==
LOC: ANHAUDIO 10:58
PROVIDERS: PCP Family Medicine; Visit Provider Family Medicine
DX: H91.93 Unspecified hearing loss, bilateral (principal)
CPT/HCPCS: 92557; 92567